=== PATIENT | male | born 2000 | race Two or more races ===

== ENCOUNTER 2022-12-16 11:23 | Emergency (ER) | payer MEDICAID ==
[~2022-12-16] VITALS: Ht 185.4 cm; Wt 73.6 kg
[2022-12-16] MEDS ORDERED: PRED20TA2 PO (17:04)
[2022-12-16] MEDS ORDERED: DIPH25CA66 PO (17:04)
[2022-12-16] MEDS ORDERED: TRIO1TP EX (17:04)
[2022-12-16] MEDS ORDERED: DexAMETHasone SOD PHOS 4 MG/1ML SDV INJ IM ONE (17:15)
[2022-12-16 17:30] VITALS: BP 110/74; PULSE 81; RESP 17; TEMP 98; O2SAT 99
== END 2022-12-16 17:41 | disposition home or self-care (01) ==
LOC: ER 11:23
DX: L25.8 Unspecified contact dermatitis due to other agents (principal)
CPT/HCPCS: 96372; 99283; J1100